=== PATIENT | female | born 1965 | race Caucasian/White ===

== ENCOUNTER 2017-04-20 14:19 | Day surgery (SDC) | payer BC ==
[~2017-04-20] VITALS: Ht 165.1 cm; Wt 61.4 kg
[2017-04-20 15:05] VITALS: Ht 165.1 cm; Wt 61.4 kg
[2017-04-20] MEDS ORDERED: MET25 PO (15:10)
[2017-04-20] MEDS ORDERED: LIDOCAINE 4% SOLUTION 50 ML BTL ONE (15:19)
[2017-04-20 15:27] VITALS: BP 138/72; PULSE 89; RESP 12
[2017-04-20 16:00] VITALS: BP 134/74; RESP 14
[2017-04-20] MEDS ORDERED: MIDAZOLAM 1 MG/ML 2 ML INJ ONE ×3 (16:07)
[2017-04-20] MEDS ORDERED: FENTAnyl 50 MCG/ML VIAL ONE (16:07)
--- NOTE | 2017-04-20 16:07 | OPPN ---
Date/Time of Note Date/Time of Note DATE: 04/20/17 TIME: 16:04 Operative Report Preoperative Diagnosis Dysphagia,GERD Postoperative Diagnosis NORMAL EGD Operation/Procedure Performed EGD BX Surgeon see signature line contract assistant NONE Anesthesia: moderate sedation ([id number]) Estimated blood loss: none Transfusion Required none Specimen RANDOM GASTRIC BIOPSY Grafts/Implants none Complications none VIVIEN SLATER MD Apr 20, 2017 16:07
[2017-04-20] MEDS ORDERED: MEPERIDINE 50 MG INJ ONE (16:08)
--- NOTE | 2017-04-20 16:10 | OPPN ---
Date/Time of Note Date/Time of Note DATE: 04/20/17 TIME: 16:07 Operative Report Preoperative Diagnosis RECTAL BLEEDING Postoperative Diagnosis NORMAL COLONOSCOPY Operation/Procedure Performed COLONOSCOPY Surgeon see signature line payroll human resources assistant NONE Anesthesia: moderate sedation ([id number]/DEMORAL 25MG/TOTAL MODERATE SEDATION TIME21 MTS) Estimated blood loss: none Transfusion Required none Specimen NONE Grafts/Implants none Complications none VIVIEN SLATER MD Apr 20, 2017 16:10
--- NOTE | 2017-04-22 04:53 | GILP ---
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 PROCEDURE DONE: Esophagogastroduodenoscopy. POSTOPERATIVE DIAGNOSIS: Essentially normal, but gastric biopsy done. DESCRIPTION OF PROCEDURE: After obtaining informed consent, the patient underwent EGD biopsy. Post erior pharynx anesthetized with 4% Xylocaine, monitored on oximetry, EKG, blood pressure. She recei breana 3 mg IV Versed, 50 mcg of fentanyl and advanced Olympus video upper endoscope in the esophagus, stomach and duodenum up to second part. Esophagus in its entire length is normal. GE junction is n ormal. No stricture noted. No esophagitis noted. No hiatus hernia noted in this study. The stoma ch was normal by retroflexion and also antegrade exam. The fundus, body and antrum normal, but rand om biopsy done to rule out H. pylori. Duodenal bulb easily entered through the pyloric channel. Duodenal bulb, first and second part norm al. Upon removal of scope, patient had no complications. PLAN: Observe and follow up as outpatient and await for biopsy report. Dictated By: VIVIEN SCHULZ Conf#: [id number] DID#: [id number]
--- NOTE | 2017-04-22 04:57 | GILP ---
DATE OF PROCEDURE: PREOPERATIVE DIAGNOSIS: Complaints of rectal bleeding. PROCEDURE DONE: Colonoscopy after esophagogastroduodenoscopy. POSTOPERATIVE DIAGNOSIS: Normal colon. DESCRIPTION OF PROCEDURE: The patient was put in left lateral decubitus after obtaining informed co nsent. She was sedated, monitored. She received 2 mg IV Versed, 50 mcg of fentanyl, 25 mg of Demer ol during the procedure in small doses. Rectal exam showed some small external hemorrhoids, grade I . I advanced the Olympus video colonoscope all the way to cecum. Ileocecal valve, appendiceal open ing identified, normal. Cecum, ascending colon normal. Transverse colon, descending colon normal. Sigmoid colon and rectum essentially normal including retroflexion in the rectum. Upon removal of scope, patient had no complications. PLAN: Observe and advise her to take Anusol suppositories if the rectal bleeding continues. If thi s is normal, I would recommend repeat colonoscopy in 10 years. Dictated By: VIVIEN SCHULZ Conf#: [id number] DID#: [id number] CC: ;*EndCC*
== END 2017-04-20 18:47 | disposition home or self-care (01) ==
LOC: GIL 14:19
PROVIDERS: ATTEND Internal Medicine
DX: K62.5 Hemorrhage of anus and rectum (principal); K21.9 Gastro-esophageal reflux disease without esophagitis; R13.10 Dysphagia, unspecified; K64.4 Residual hemorrhoidal skin tags
CPT/HCPCS: 43235; 45378; 88305; 88312; J2175; J2250; J3010; Z7610